=== PATIENT | female | born 1995 | race American Indian/Alaskan Native ===

== ENCOUNTER 2017-12-09 15:29 | Emergency (ER) | payer MEDICAID ==
[2017-12-09] MEDS ORDERED: NACL 0.9% 1000 ML 1,000 ML IV ONE (16:31)
[2017-12-09] MEDS ORDERED: NACL 0.9% 500 ML 500 ML IV ONE (16:31)
[2017-12-09] MEDS ORDERED: TORADOL IV ONE (16:31)
[2017-12-09] MEDS ORDERED: ZOFRAN ODT PO ONE (16:31)
[2017-12-09] MEDS ORDERED: KENALOG TP ONE (16:33)
[2017-12-09] MEDS ORDERED: BENADRYL PO ONE (16:33)
[2017-12-09] MEDS ORDERED: ULTRAM PO ONE (16:34)
--- NOTE | 2017-12-09 16:48 | Emergency Department Report ---
HPI - General Chief Complaint: Allergic Reaction Time Seen by Provider: 12/09/17 16:31 - HPI HPI: Pt says that she ran out of her kenalog cream 3 days ago, as well as her moisturizing ointment. Afebrile. Skin has been cracking. She feels thirsty all the time. No rash on her palms/soles or in her mouth. No one is currently managing her eczema. H/o scz. Currently hearing voices, which is normal for her , but denies SI/HI. ED Past Medical Hx - Past Medical History Previous Medical History?: Yes Hx Hypertension: No Hx Congestive Heart Failure: No Hx Diabetes: No Hx Deep Vein Thrombosis: No Hx Renal Disease: No Hx Sickle Cell Disease: No Hx Seizures: No Hx Psychiatric Treatment: Yes (anxiety,bipolar,PTSH,depression) Hx Asthma: Yes Hx COPD: No Hx HIV: No Additional medical history: eczema, EXFOLIATIVE DERMATITIS - Surgical History Past Surgical History?: Yes Additional Surgical History: vaginal delivery - Social History Smoking Status: Never Smoker Substance Use Type: None - Medications Home Medications: Home Medications Medication Instructions Recorded Confirmed Last Taken Type hydrOXYzine PAMOATE [Vistaril] 25 mg PO Q8H PRN #14 capsule 01/26/16 Unknown Rx methylPREDNISolone [Medrol Dose 4 mg PO QAM #1 pack 01/26/16 Unknown Rx Wu] Sulfamethoxazole/Trimethoprim 1 each PO BID #6 tablet 02/04/16 Unknown Rx [Bactrim DS TAB] Triamcinolone 0.025% [Kenalog 1 applic TP TID #1 tube 12/09/17 Unknown Rx 0.025% CREAM] Triamcinolone 0.1% [Kenalog 0.1% 1 applic TP TID #1 tube 12/09/17 Unknown Rx CREAM] predniSONE [Deltasone] 10 mg PO QDAY #53 tab 12/09/17 Unknown Rx ED Review of Systems ROS: Stated complaint: SEVERE ECZEMA Other details as noted in HPI Comment: All other systems reviewed and negative Skin: rash, pruritus Psychiatric: auditory hallucinations Physical Exam - Physical Exam Vital Signs: Vital Signs 12/09/17 16:37 Temperature 98.1 F Pulse Rate 94 H Respiratory 16 Rate Blood Pressure 156/84 [Left] O2 Sat by Pulse 100 Oximetry General: A&Ox3, PERRLA, Oropharynx unremarkable. Mucous membranes moist. Lungs CTAB, no resp distress. regular rhythm, nml S1/S2. No murmurs/rubs/gallops. Abdomen soft , NTD. Pt is anxious. Diffuse scaly, macular rash on face, arms, torso, legs sparing the palms/soles/oropharynx. PT is anxious, but denies si/hi. No obvious injury/deformity ED Course Vital Signs 12/09/17 16:37 Temperature 98.1 F Pulse Rate 94 H Respiratory 16 Rate Blood Pressure 156/84 [Left] O2 Sat by Pulse 100 Oximetry - Reevaluation(s) Reevaluation #1: Labs show mild acidosis with bicarb of 20. Likely 2/2 dehydration. Given IVF. On re-evaluation, pt feels improved. She will started on steroids and given [facility] referral. 12/09/17 18:55 ED Medical Decision Making - Lab Data Result diagrams: 12/09/17 16:33 12/09/17 16:33 - Medical Decision Making 22 yo female with pmhx of eczema, schizophrenia that p/w diffuse dry skin. Afebrile. VSS. Pt is well appearing with generalized eczema. No evidence of a super infection. Screening lab work has been order. Will start patient on kenalog 1% for her body and 0.25% for the face, 40 mg prednisone taper, OTC cream, and referral to the [facility]. PT endorses hearing voices, which is consistent with her schizophrenia. Denies SI, HI. I do not see an indication for emergent psychiatric evaluation at this time. - Differential Diagnosis sjs, ten, SSS, TSS, cellulits, eczema, urticaria, psoriasis, scabies Critical care attestation.: If time is entered above; I have spent that time in minutes in the direct care of this critically ill patient, excluding procedure time. ED Disposition Clinical Impression: Eczema Disposition: DC-01 TO HOME OR SELFCARE Is pt being admited?: No Does the pt Need Aspirin: No Condition: Stable Additional Instructions: Please follow up with the [facility] for likely dermatology referral. Take your meds as prescribed. Prescriptions: predniSONE [Deltasone] 10 mg PO QDAY #53 tab Triamcinolone 0.025% [Kenalog 0.025% CREAM] 1 applic TP TID #1 tube Triamcinolone 0.1% [Kenalog 0.1% CREAM] 1 applic TP TID #1 tube
[2017-12-09 16:54] LABS: Hematocrit 40.9 % (30.3-42.9); Hemoglobin 13.9 gm/dl (10.1-14.3); Mean Corpuscular HGB Conc 34 % (30-34); Mean Corpuscular Hemoglobin 33 pg (28-32); Mean Corpuscular Volume 96 fl (79-97); Platelet Count 337 K/mm3 (140-440); Red Blood Count 4.28 M/mm3 (3.65-5.03); Red Cell Distribution Width 13.2 % (13.2-15.2)
[2017-12-09] MEDS ORDERED: DELTASONE PO ONE (17:05)
[2017-12-09 17:31] LABS: BUN/Creatinine Ratio 26; Blood Urea Nitrogen 18 mg/dL (7-17); Calcium 8.6 mg/dL (8.4-10.2); Hemolysis Index 44
[2017-12-09 18:07] LABS: Band Neutrophils # (Manual) 0.1 K/mm3; Basophils % (Manual) 0 % (0.0-1.8); Eosinophils % (Manual) 0 % (0.0-4.3); Monocytes % (Manual) 0 % (0.0-7.3); Total Cells Counted 100
[2017-12-09 18:08] LABS: Platelet Estimate Consistent w Auto; RBC Morphology Normal
[2017-12-09 23:28] VITALS: BP 152/84
== END 2017-12-09 21:00 | disposition home or self-care (01) ==
LOC: ED 15:29
DX: L30.9 Dermatitis, unspecified (principal); R44.0 Auditory hallucinations; F41.9 Anxiety disorder, unspecified; F32.9 Major depressive disorder, single episode, unspecified; J45.909 Unspecified asthma, uncomplicated
CPT/HCPCS: 36415; 80048; 85007; 85025; 96374; 99284; J1885; J7030; 96361; Q0162

== ENCOUNTER 2019-05-12 20:43 | Emergency (ER) | payer MEDICAID ==
[2019-05-12 22:52] VITALS: BP 113/59
[2019-05-13] MEDS ORDERED: MAGNESIUM CITRATE 300 ML ORAL LIQD PO ONE (00:43)
[2019-05-13] MEDS ORDERED: MINERAL OIL 30 ML ORAL LIQD PO ONE (00:44)
[2019-05-13] MEDS ORDERED: GLYCERIN ADULT 2 GRAM RECT SUPP PR ONE (00:44)
[2019-05-13] MEDS ORDERED: FAMOTIDINE 20 MG/2 ML INJ IV ONE (00:45)
[2019-05-13] MEDS ORDERED: ONDANSETRON 4 MG/2 ML INJ IV ONE (00:45)
[2019-05-13] MEDS ORDERED: KETOROLAC 30 MG/1 ML INJ IV ONE (00:45)
[2019-05-13 02:18] LABS: Basophils % (Auto) 0.4 % (0.0-1.8); Eosinophils % (Auto) 0.2 % (0.0-4.3); Hematocrit 38.9 % (30.3-42.9); Hemoglobin 13.1 gm/dl (10.1-14.3); Lymphocytes # (Auto) 0.7 K/mm3 (1.2-5.4); Lymphocytes % (Auto) 7.3 % (13.4-35.0); Mean Corpuscular HGB Conc 34 % (30-34); Mean Corpuscular Volume 91 fl (79-97); Monocytes # (Auto) 0.7 K/mm3 (0.0-0.8); Monocytes % (Auto) 7.3 % (0.0-7.3); Platelet Count 262 K/mm3 (140-440); Red Blood Count 4.29 M/mm3 (3.65-5.03); Red Cell Distribution Width 14.4 % (13.2-15.2)
[2019-05-13 02:41] LABS: Alanine Aminotransferase 11 units/L (7-56); Albumin 4.6 g/dL (3.9-5); BUN/Creatinine Ratio 20; Blood Urea Nitrogen 12 mg/dL (7-17); Calcium 9.8 mg/dL (8.4-10.2); Hemolysis Index 20
--- NOTE | 2019-05-13 03:27 | Emergency Department Report ---
<SPIKE NAVARRO - Last Filed: 05/13/19 03:22> ED Abdominal Pain HPI - General Chief Complaint: Abdominal Pain Stated Complaint: CONSTIPATION Source: patient, old records reviewed Mode of arrival: Ambulatory Limitations: No Limitations - History of Present Illness Initial Comments: Patient is a 24-year-old female with history of chronic eczema who presents to the ED with complaint of acute onset persistent diffuse abdominal pain intermittently for the last 1 week with nausea and not having a bowel movement in over 1 week. Patient denies fever, chills, dizziness, chest pain, shortness of breath, dysuria, urinary frequency and urgency, vaginal discharge, vaginal bleeding, dyspareunia, cough, nasal and sinus congestion or sore throat. MD Complaint: abdominal pain, other (constipation) -: Sudden, week(s) (1) Location: diffuse Radiation: none Migration to: no migration Severity scale (0 -10): 5 Quality: cramping, aching Consistency: constant Improves With: nothing Worsens With: nothing Associated Symptoms: nausea. denies: vomiting, diarrhea, fever, chills, dysuria, hematemesis, melena, anorexia, syncope - Related Data LMP Date: 04/27/19 Previous Rx's Medication Instructions Recorded Last Taken Type hydrOXYzine PAMOATE [Vistaril] 25 mg PO Q8H PRN #14 capsule 01/26/16 Unknown Rx methylPREDNISolone [Medrol Dose 4 mg PO QAM #1 pack 01/26/16 Unknown Rx Uw] Sulfamethoxazole/Trimethoprim 1 each PO BID #6 tablet 02/04/16 Unknown Rx [Bactrim DS TAB] Triamcinolone 0.025% [Kenalog 1 applic TP TID #1 tube 12/09/17 Unknown Rx 0.025% CREAM] Triamcinolone 0.1% [Kenalog 0.1% 1 applic TP TID #1 tube 12/09/17 Unknown Rx CREAM] predniSONE [Deltasone] 10 mg PO QDAY #53 tab 12/09/17 Unknown Rx Polyethylene Glycol 3350 [Miralax 17 gm PO BID PRN #14 packet 05/13/19 Unknown Rx 3350] bisacodyL [Dulcolax suppos] 10 mg ND ONCE PRN #6 supp.rect 05/13/19 Unknown Rx Allergies Allergy/AdvReac Type Severity Reaction Status Date / Time Beef Containing Products Allergy Unknown Verified 01/05/14 18:44 chicken derived Allergy Unknown Verified 01/05/14 18:44 egg Allergy Itching Verified 01/05/14 18:44 latex Allergy Anaphylaxis Verified 01/05/14 18:44 milk Allergy Itching Verified 01/05/14 18:44 peanut Allergy Itching Verified 01/05/14 18:44 mushrooms Allergy Itching Uncoded 01/05/14 18:44 ED Review of Systems Constitutional: denies: chills, fever Eyes: denies: eye pain, eye discharge, vision change ENT: denies: ear pain, throat pain Respiratory: denies: cough, shortness of breath, wheezing Cardiovascular: denies: chest pain, palpitations Endocrine: no symptoms reported Gastrointestinal: abdominal pain, nausea. denies: diarrhea Genitourinary: denies: urgency, dysuria, discharge Musculoskeletal: denies: back pain, joint swelling, arthralgia Skin: denies: rash, lesions Neurological: denies: headache, weakness, paresthesias Psychiatric: denies: anxiety, depression Hematological/Lymphatic: denies: easy bleeding, easy bruising ED Past Medical Hx - Past Medical History Previous Medical History?: Yes Hx Hypertension: No Hx Congestive Heart Failure: No Hx Diabetes: No Hx Deep Vein Thrombosis: No Hx Renal Disease: No Hx Sickle Cell Disease: No Hx Seizures: No Hx Psychiatric Treatment: Yes (anxiety,bipolar,PTSH,depression) Hx Asthma: Yes Hx COPD: No Hx HIV: No Additional medical history: eczema, EXFOLIATIVE DERMATITIS - Surgical History Additional Surgical History: vaginal delivery. x1 - Social History Smoking Status: Never Smoker Substance Use Type: None - Medications Home Medications: Home Medications Medication Instructions Recorded Confirmed Last Taken Type hydrOXYzine PAMOATE [Vistaril] 25 mg PO Q8H PRN #14 capsule 01/26/16 Unknown Rx methylPREDNISolone [Medrol Dose 4 mg PO QAM #1 pack 01/26/16 Unknown Rx Wu] Sulfamethoxazole/Trimethoprim 1 each PO BID #6 tablet 02/04/16 Unknown Rx [Bactrim DS TAB] Triamcinolone 0.025% [Kenalog 1 applic TP TID #1 tube 12/09/17 Unknown Rx 0.025% CREAM] Triamcinolone 0.1% [Kenalog 0.1% 1 applic TP TID #1 tube 12/09/17 Unknown Rx CREAM] predniSONE [Deltasone] 10 mg PO QDAY #53 tab 12/09/17 Unknown Rx Polyethylene Glycol 3350 [Miralax 17 gm PO BID PRN #14 packet 05/13/19 Unknown Rx 3350] bisacodyL [Dulcolax suppos] 10 mg ND ONCE PRN #6 supp.rect 05/13/19 Unknown Rx ED Physical Exam - General Limitations: No Limitations General appearance: alert, in no apparent distress - Head Head exam: Present: atraumatic, normocephalic, normal inspection - Eye Eye exam: Present: normal appearance, PERRL, EOMI Pupils: Present: normal accommodation - ENT ENT exam: Present: normal exam, normal orophraynx, mucous membranes moist, TM's normal bilaterally, normal external ear exam - Neck Neck exam: Present: normal inspection, full ROM - Respiratory Respiratory exam: Present: normal lung sounds bilaterally. Absent: respiratory distress, wheezes, rales, rhonchi, chest wall tenderness, decreased breath sounds, prolonged expiratory - Cardiovascular Cardiovascular Exam: Present: regular rate, normal rhythm, normal heart sounds. Absent: systolic murmur, diastolic murmur, rubs, gallop - GI/Abdominal GI/Abdominal exam: Present: soft, tenderness (mildly diffuse abdominal tenderness with no guarding), normal bowel sounds. Absent: guarding, rebound, hyperactive bowel sounds - Extremities Exam Extremities exam: Present: normal inspection, full ROM, normal capillary refill - Back Exam Back exam: Present: normal inspection, full ROM - Neurological Exam Neurological exam: Present: alert, oriented X3, CN II-XII intact, normal gait, reflexes normal - Psychiatric Psychiatric exam: Present: normal affect, normal mood - Skin Skin exam: Present: warm, dry, intact, normal color. Absent: rash ED Medical Decision Making - Lab Data Result diagrams: 05/13/19 01:59 05/13/19 01:59 - Medical Decision Making This is a 24-year-old female who presented to the ED with content of diffuse abdominal pain with nausea and constipation for one week. In the ED, patient is alert and oriented 3 and is not in distress but appears to be in pain crying during the physical exam. Lab test results were reviewed and are nonactionable. Urinalysis is pending. Abdominal pelvic CT scan with contrast report is also pending. Patient was treated for nausea and vomiting, also treated with antacids and pain medication Toradol. Patient was also treated in the ED with magnesium citrate and glycerin suppositories in the ED. On reevaluation, patient's pain is well-controlled with medications. Patient care was transferred to Mr. Todde Kye PERCUSSION INSTRUMENT REPAIRER at shift change at 03:30 AM who showed reviewed all lab test results, reevaluate the patient and also review imaging report and appropriately disposition the patient. - Differential Diagnosis Constipation; Abdominal pain; GERD; UTI ED Disposition Clinical Impression: Constipation Qualifiers: Constipation type: unspecified constipation type Qualified Code(s): K59.00 - Constipation, unspecified Abdominal pain Qualifiers: Abdominal location: generalized Qualified Code(s): R10.84 - Generalized abdominal pain Disposition: - TO HOME OR SELFCARE Is pt being admited?: No Does the pt Need Aspirin: No Condition: Stable Instructions: Constipation (ED), Abdominal Pain (ED) Prescriptions: bisacodyL [Dulcolax suppos] 10 mg ND ONCE PRN #6 supp.rect PRN Reason: Constipation Polyethylene Glycol 3350 [Miralax 3350] 17 gm PO BID PRN #14 packet PRN Reason: Constipation Referrals: PRIMARY CARE, [Primary Care Provider] - 3-5 Days Forms: Work/School Release Form(ED) <TYRA FERNANDEZ - Last Filed: 05/13/19 04:43> ED Review of Systems ROS: Stated complaint: CONSTIPATION Other details as noted in HPI ED Course Vital Signs 05/12/19 22:50 Temperature 97.8 F Pulse Rate 77 Respiratory 18 Rate Blood Pressure 113/59 [Right] O2 Sat by Pulse 98 Oximetry ED Medical Decision Making - Lab Data Result diagrams: 05/13/19 01:59 05/13/19 01:59 Critical care attestation.: If time is entered above; I have spent that time in minutes in the direct care of this critically ill patient, excluding procedure time.
--- NOTE | 2019-05-13 04:08 | Cat Scan Report ---
CT ABDOMEN AND PELVIS WITH IV CONTRAST INDICATION: Generalized abdominal pain TECHNIQUE: Following the administration of intravenous contrast, multiple axial CT images of the abdo men and pelvis were acquired. Sagittal and coronal reformats were obtained. All CT performed at this facility utilize dose reduction techniques including automated exposure control, iterative reconstru ction and weight based dosing when appropriate to reduce patient radiation dose to as low as reasonab ly achievable. COMPARISON: None FINDINGS: Limited imaging of the bilateral lung bases demonstrates no evidence of acute abnormality. Abdomen: The liver, spleen, pancreas and gallbladder show no evidence of acute abnormality. Bilateral kidneys appear grossly normal. There are multiple loops of mildly prominent fluid-filled small bowel throughout the abdomen the appendix is visualized and appears normal. Pelvis: There is a large volume of formed stool within the rectal vault. There is a small amount of e ndometrial fluid. The urinary bladder appears grossly normal. Bones and Soft Tissues: Evaluation of bony structures demonstrates no evidence of acute bony abnormal ity. Soft tissue structures appear grossly normal. IMPRESSION: 1. Significant amount of formed stool within the rectal vault potentially representing rectal fecal i mpaction. 2. Multiple loops of mildly prominent fluid-filled small bowel throughout the abdomen. This is nonspe cific but could be secondary to either constipation or enteritis. Signer Name: Genesis Young MD Signed: 05/13/2019 4:03 AM Workstation Name: [id number]
== END 2019-05-13 05:00 | disposition home or self-care (01) ==
LOC: ED 20:43
DX: K59.00 Constipation, unspecified (principal); F32.9 Major depressive disorder, single episode, unspecified; J45.909 Unspecified asthma, uncomplicated; Z98.890 Other specified postprocedural states; Z79.899 Other long term (current) drug therapy; Z91.018 Allergy to other foods; Z91.012 Allergy to eggs; Z91.040 Latex allergy status; Z88.8 Allergy status to other drugs, medicaments and biological substances
CPT/HCPCS: 36415; 74177; 80053; 83690; 85025; 96374; 96375; 99284; J1885; J2405; Q9967

== ENCOUNTER 2019-08-06 01:02 | Emergency (ER) | payer MEDICAID ==
[2019-08-06] MEDS ORDERED: ONDANSETRON 4 MG ODT TAB PO ONE (01:58)
--- NOTE | 2019-08-06 02:03 | Emergency Department Report ---
HPI - General Chief Complaint: Overdose Time Seen by Provider: 08/06/19 01:48 - HPI HPI: Room 6 The patient is a 24-year-old female present with a chief complaint of suicidal ideation. Patient states she is been depressed for 3 months. Patient states approximate 1.5 hours prior to arrival she intentionally overdosed on Risperdal 2 mg #12 and Lexapro 10 mg #4. Patient denies any other coingestants ED Past Medical Hx - Past Medical History Previous Medical History?: Yes Hx Psychiatric Treatment: Yes (anxiety,bipolar, schizoaffective disorder,depression) Hx Asthma: Yes Additional medical history: eczema, EXFOLIATIVE DERMATITIS, hyperthyroidism - Surgical History Past Surgical History?: Yes Additional Surgical History: vaginal delivery. x1 - Family History Family history: no significant - Social History Smoking Status: Current Every Day Smoker (1/3 pack/day) Substance Use Type: Alcohol (Occasional), Marijuana - Medications Home Medications: Home Medications Medication Instructions Recorded Confirmed Last Taken Type Escitalopram [Lexapro] 10 mg PO HS 08/06/19 08/06/19 Unknown History risperiDONE [RisperDAL] 2 mg PO HS 08/06/19 08/06/19 Unknown History ED Review of Systems ROS: Stated complaint: SUICIDAL Other details as noted in HPI Gastrointestinal: nausea Psychiatric: suicidal thoughts Physical Exam - Physical Exam Vital Signs: Vital Signs 08/06/19 08/06/19 01:19 01:27 Temperature 98.2 F Pulse Rate 64 Respiratory 20 16 Rate Blood Pressure 128/96 Blood Pressure 128/96 [Left] O2 Sat by Pulse 100 100 Oximetry Physical Exam: GENERAL: The patient is well-developed well-nourished female sitting on stretcher not appearing to be in acute distress. [] HEENT: Normocephalic. Atraumatic. Extraocular motions are intact. Patient has moist mucous membranes. NECK: Supple. Trachea midline CHEST/LUNGS: Clear to auscultation. There is no respiratory distress noted. HEART/CARDIOVASCULAR: Regular. There is no tachycardia. There is no gallop rub or murmur. ABDOMEN: Abdomen is soft, nontender. Patient has normal bowel sounds. There is no abdominal distention. SKIN: Eczema present. There is no diaphoresis. NEURO: The patient is awake, alert, and oriented. The patient is cooperative. The patient has normal speech MUSCULOSKELETAL: There is no evidence of acute injury. ED Course Vital Signs 08/06/19 08/06/19 01:19 01:27 Temperature 98.2 F Pulse Rate 64 Respiratory 20 16 Rate Blood Pressure 128/96 Blood Pressure 128/96 [Left] O2 Sat by Pulse 100 100 Oximetry - Consultations Consultation #1: 08/06/19 02:03 Poison control called 08/06/19 02:12 Case discussed with poison control. Do not expect much toxicity from Lexapro however with Risperdal may develop tachycardia, hypotension, extraparametal symptoms, QTC prolongation, respiratory depression seizures neuroleptic malignant syndrome. Recommends observing the patient for 6 to 8 hours. May be cleared when patient is at her baseline after that time. Use benzodiazepines for agitation and stay away from antipsychotics. If QRS greater than 100 optimize potassium, magnesium and calcium ED Medical Decision Making - Lab Data Result diagrams: 08/06/19 02:16 08/06/19 02:16 Laboratory Tests 08/06/19 08/06/19 08/06/19 02:16 02:16 02:16 WBC 6.0 RBC 3.77 Hgb 11.9 Hct 35.0 MCV 93 MCH 32 MCHC 34 RDW 14.5 Plt Count 363 Lymph % (Auto) 24.4 Greene % (Auto) 6.6 Eos % (Auto) 4.2 Baso % (Auto) 0.7 Lymph # 1.5 Greene # 0.4 Eos # 0.3 Baso # 0.0 Seg Neutrophils % 64.1 Seg Neutrophils # 3.9 Sodium 139 Potassium 3.5 L Chloride 104.0 Carbon Dioxide 25 Anion Gap 14 BUN 20 H Creatinine 0.9 Estimated GFR > 60 BUN/Creatinine Ratio 22 Glucose 107 H Calcium 9.4 HCG, Qual Urine Color Urine Turbidity Urine pH Ur Specific [place] Urine Protein Urine Glucose (UA) Urine Ketones Urine Blood Urine Nitrite Urine Bilirubin Urine Urobilinogen Ur Leukocyte Esterase Urine WBC (Auto) Urine RBC (Auto) U Epithel Cells (Auto) Urine Bacteria (Auto) Urine Mucus Salicylates < 0.3 L Urine Opiates Screen Urine Methadone Screen Acetaminophen Ur Barbiturates Screen Ur Phencyclidine Scrn Ur Amphetamines Screen U Benzodiazepines Scrn Urine Cocaine Screen U Marijuana (THC) Screen Drugs of Abuse Note Plasma/Serum Alcohol 08/06/19 08/06/19 08/06/19 02:16 02:16 02:16 WBC RBC Hgb Hct MCV MCH MCHC RDW Plt Count Lymph % (Auto) [place] % (Auto) Eos % (Auto) Baso % (Auto) Lymph # Greene # Eos # Baso # Seg Neutrophils % Seg Neutrophils # Sodium Potassium Chloride Carbon Dioxide Anion Gap BUN Creatinine Estimated GFR BUN/Creatinine Ratio Glucose Calcium HCG, Qual Negative Urine Color Urine Turbidity Urine pH Ur Specific [place] Urine Protein Urine Glucose (UA) Urine Ketones Urine Blood Urine Nitrite Urine Bilirubin Urine Urobilinogen Ur Leukocyte Esterase Urine WBC (Auto) Urine RBC (Auto) U Epithel Cells (Auto) Urine Bacteria (Auto) Urine Mucus Salicylates Urine Opiates Screen Urine Methadone Screen Acetaminophen < 5.0 L Ur Barbiturates Screen Ur Phencyclidine Scrn Ur Amphetamines Screen U Benzodiazepines Scrn Urine Cocaine Screen U Marijuana (THC) Screen Drugs of Abuse Note Plasma/Serum Alcohol < 0.01 08/06/19 08/06/19 04:38 04:38 WBC RBC Hgb Hct MCV MCH MCHC RDW Plt Count Lymph % (Auto) Greene % (Auto) Eos % (Auto) Baso % (Auto) Lymph # Greene # Eos # Baso # Seg Neutrophils % Seg Neutrophils # Sodium Potassium Chloride Carbon Dioxide Anion Gap BUN Creatinine Estimated GFR BUN/Creatinine Ratio Glucose Calcium HCG, Qual Urine Color Yellow Urine Turbidity Clear Urine pH 5.0 Ur Specific [place] 1.029 Urine Protein 30 mg/dl Urine Glucose (UA) Neg Urine Ketones 20 Urine Blood Lg Urine Nitrite Neg Urine Bilirubin Neg Urine Urobilinogen 2.0 Ur Leukocyte Esterase Tr Urine WBC (Auto) 7.0 H Urine RBC (Auto) 36.0 U Epithel Cells (Auto) < 1.0 Urine Bacteria (Auto) 1+ Urine Mucus 3+ Salicylates Urine Opiates Screen Presumptive negative Urine Methadone Screen Presumptive negative Acetaminophen Ur Barbiturates Screen Presumptive negative Ur Phencyclidine Scrn Presumptive negative Ur Amphetamines Screen Presumptive negative U Benzodiazepines Scrn Presumptive negative Urine Cocaine Screen Presumptive negative U Marijuana (THC) Screen Presumptive positive Drugs of Abuse Note Disclamer Plasma/Serum Alcohol - EKG Data -: EKG Interpreted by Me EKG shows normal: sinus rhythm Rate: bradycardia (53 bpm) - EKG Data When compared to previous EKG there are: previous EKG unavailable Interpretation: other (Early repolarization. QRS 95) - Differential Diagnosis Suicidal ideation Critical care attestation.: If time is entered above; I have spent that time in minutes in the direct care of this critically ill patient, excluding procedure time. ED Disposition Clinical Impression: Suicidal ideation Disposition: DC/TX-65 PSY HOSP/PSY UNIT Is pt being admited?: No Does the pt Need Aspirin: No Condition: Stable Referrals: PRIMARY CARE, [Primary Care Provider] - 3-5 Days Time of Disposition: 06:15 (Awaiting acceptance)
[2019-08-06] MEDS ORDERED: LORazepam 2 MG/ML VIAL IM PRN (02:13)
[2019-08-06 02:38] LABS: Basophils % (Auto) 0.7 % (0.0-1.8); Eosinophils # (Auto) 0.3 K/mm3 (0.0-0.4); Eosinophils % (Auto) 4.2 % (0.0-4.3); Hemoglobin 11.9 gm/dl (10.1-14.3); Lymphocytes # (Auto) 1.5 K/mm3 (1.2-5.4); Lymphocytes % (Auto) 24.4 % (13.4-35.0); Mean Corpuscular HGB Conc 34 % (30-34); Mean Corpuscular Volume 93 fl (79-97); Monocytes # (Auto) 0.4 K/mm3 (0.0-0.8); Monocytes % (Auto) 6.6 % (0.0-7.3); Platelet Count 363 K/mm3 (140-440); Red Blood Count 3.77 M/mm3 (3.65-5.03); Red Cell Distribution Width 14.5 % (13.2-15.2)
[2019-08-06 02:51] LABS: BUN/Creatinine Ratio 22; Blood Urea Nitrogen 20 mg/dL (7-17); Calcium 9.4 mg/dL (8.4-10.2); Hemolysis Index 3
[2019-08-06 05:09] LABS: Amphetamine Screen,Urine PRESUMPTIVE NEGATIVE; Bacteria,Urine 1+ /HPF (Negative); Benzodiazepines Screen,Urine PRESUMPTIVE NEGATIVE; Bilirubin,Urine NEG (Negative); Blood,Urine LG (Negative); Cocaine Screen,Urine PRESUMPTIVE NEGATIVE; Color,Urine Yellow (Yellow); Methadone Screen,Urine PRESUMPTIVE NEGATIVE; Mucus,Urine 3+ /HPF; Opiate Screen,Urine PRESUMPTIVE NEGATIVE
[2019-08-06 05:22] LABS: Cannabinoid Screen,Urine PRESUMPTIVE POSITIVE
[2019-08-06] MEDS ORDERED: diphenhydrAMINE 25 MG CAP PO ONE (15:20)
[2019-08-06 20:46] VITALS: BP 113/65
== END 2019-08-06 21:00 ==
LOC: ED 01:02 → EEVIPCON 01:02 → ED 21:00
DX: R45.851 Suicidal ideations (principal); F41.9 Anxiety disorder, unspecified; F25.0 Schizoaffective disorder, bipolar type; J45.909 Unspecified asthma, uncomplicated; F17.200 Nicotine dependence, unspecified, uncomplicated; F12.10 Cannabis abuse, uncomplicated; Z98.890 Other specified postprocedural states; Z91.012 Allergy to eggs; Z91.011 Allergy to milk products; Z91.018 Allergy to other foods
CPT/HCPCS: 36415; 80048; 80307; 81001; 82962; 84703; 85025; 93005; 93010; 96372; 99285; J2060; 80320; G0480; Q0162